=== PATIENT | female | born 1995 | race Caucasian/White ===

== ENCOUNTER 2020-08-21 07:19 | Inpatient (IN) | payer BC ==
[2020-08-21] MEDS ORDERED: Nalbuphine 10 MG/1 ML Vial IVPUSH PRN (07:25)
[2020-08-21] MEDS ORDERED: Ondansetron 4 MG/2 ML SDV IVPUSH PRN (07:25)
[2020-08-21] MEDS ORDERED: Sodium Chloride 0.9% 10 ML Syringe FLUSH PRN (07:25)
[2020-08-21] MEDS ORDERED: Oxytocin/Lactated Ringers 10 UNIT/1,000 ML BAG IV SCH ×2 (07:30)
[2020-08-21] MEDS: Lactated Ringers 1,000 ML IV SCH ×2 (07:49→12:42)
[2020-08-21] MEDS ORDERED: Ampicillin 2 GM in Sodium Chloride 0.9% 100 ML IV ONE (08:00)
--- NOTE | 2020-08-21 09:04 | PCM.LDHP ---
L&D History of Present Illness - General Date of Service: 08/21/20 Admit Problem/Dx: Patient Status Order with Admit Dx/Problem 08/21/20 07:34 Admission Status [Patient Status] [ADT] Routine Admission Diagnosis/Problem Admission Diagnosis/Problem 08/21/20 08:48 Renetta is a 25-year-old 2 para 1-0-0-1 female presently at 40-0/7 weeks gestational age with an ARY of 08/21/2020 admitted for induction of labor on the a.m. of 08/21/2020. Source of Information: Patient History Limitations: Reports: No Limitations - History of Present Illness Introduction:: Renetta is a 25-year-old 2 para 1-0-0-1 female presently at 40-0/7 weeks gestational age with an ARY of 08/21/2020 admitted for induction of labor on the a.m. of 08/21/2020. The process and procedure of induction of labor, its risks, benefits, alternatives of care including allowing for natural onset of labor are discussed in detail with the patient. She appears understand and wishes to proceed. 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 Patient had menarche at age 13. Cycles q. 28 days and regular. Her ARY of 08/22/2019 was determined by a certain last menstrual period starting 11/15/2019 and supported by at least 3 ultrasounds during the course of the at 6 weeks, 9 weeks and 19 weeks. Patient was not using any control at the time of conception. Her previous obstetric history is negative for STIs or abnormal Pap smears. Her previous obstetric experience includes the followin. Female infant born 02/07/2018 at 39-4/7 weeks gestational age8 pounds 7 ouncesNSVDepidural used for pain [facility]. Child's name is Karl course: Patient was first visit was on 12/28/2019 at 6-2/7 weeks gestational age at which time a transvaginal ultrasound was supportive of her certain last menstrual period 11/15/2019 dating giving a final ARY of 08/21/2020. She was seen on a very regular basis throughout the course. Weight gain has been from 183.8 pounds to 215 pounds. Her vital signs been stable throughout the course. She is group B strep positive and is a candidate for ampicillin prophylaxis in L&D. She declined genetic testing. She declined flu vaccination. She has a history of kidney stones. She plans on br east-feeding. She had her Tdap on 06/13/2020. She is rubella immune. Laboratory testing in : Blood is a positive with a negative antibody screen. First laboratory testing showed hemoglobin of 13.1 g/dL and platelets of 329,000. Her rubella titer shows immunity. RPR is nonreactive. Urine culture was negative. Hepatitis B surface antigen and HIV assays were both negative. Chlamydia and gonorrhea tests were both negative. Her TSH done on 02/22/2020 was normal at 0.851milliunits/L. Second trimester laboratory testing showed a hemoglobin of 12.5 g/dL and platelets at 313,000. Her 1 hour GTT was normal at 92. Follow-up CBC on 05/19/2020 showed hemoglobin 11.7 with platelets at 298,000. RPR at that same time was nonreactive. Group B strep screen done on 07/25/2020 was positive. Early progesterone levels and hCG numbers were normal. Allergies: None Medications: 1. vitamins p.o. daily 2. Vitamin D tabs p.o. daily #3 calcium tablets p.o. daily #4 ferrous sulfate 325 mg p.o. daily Past medical history: 1. Depression anxiety. Also on depression treated with escitalopram after last 2. Reported some arthritis signs/symptoms. 3. History of kidney stones 4. x1 Past surgical history: 1. Tonsillectomy Family history: Mother is alive and well at age 44. Paternal grandfather is diabetic. Initially type I diabetic later type 2 diabetes. Was 58 years old when he passed from heart failure. Maternal grand mother has history of breast cancer was 50+ years old when diagnosed. Regular age and health problems with still alive. Father is well at age 45. Paternal grandfather has COPDwas a smoker, alcoholic is now presently in his late 70s. Paternal grandmother has heart issues, takes medications. She did have a stent placed in her late 70s. She has no siblings. One first cousin that is healthy. Mother's sister with problems due to having only half the uterus. No family history of bleeding or clotting disorders, anesthesia related problems or related concerns. Social history: Patient is single. She is a high school graduate. 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 Her significant other is Travis Duong. She lives in [place], [place]. She does not use any significance alcohol, drugs or tobacco. Review of systems: In general patient has no complaints. Baby is active. She h as had no significant cramps, loss of vaginal fluid or bleeding. Skin: Negative Lungs: No infectious symptoms or shortness of breath Cardiovascular: No chest pain or exercise intolerance Breasts: No lumps, changes in size, pain, dimpling, discharge or axillary or supraclavicular concerns. GI: Negative : Body habitus changes associated . Musculoskeletal: Negative Neurological: Negative Physical exam: In general the patient is well-developed, well-nourished, pleasant female of stated age in no acute distress. On last evaluation in clinic on 08/15/2020 Renetta had a blood pressure of 120/68. Weight was 215 with weight on initial visit 183.8. Prepregnancy body mass index was 26. Height is 5 feet 9 inches. heart rate was 126. Skin is warm dry without lesions. HEENT, neck and back within normal limits. Lungs are clear with good breath sounds in all lung ross. Cardiovascular exam shows regular and rhythm without murmurs. Breast exam deferred having been done just prior to her first visit and found to be normal. Patient does plan to breast-feed. Abdomen is flat, soft, nontender without masses or organomegaly. Positive bowel sounds are noted. No inguinal lymphadenopathy or hernias are noted. Genital per digital evaluation on her last clinic visit shows cervix 2 cm plus, mid position, soft, -3 station, 70% effaced. Extremities and neurological exam are grossly within normal limits. 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: Reports: Musculoskeletal History: Reports: Arthritis (as a child-) Psychiatric History: Reports: Anxiety, Depression Other Psychiatric History: Previously treated, not since - Infectious Disease History Infectious Disease History: Reports: Novel Coronavirus - Past Surgical History HEENT Surgical History: Reports: Oral Surgery, Tonsillectomy Other HEENT Surgeries/Procedures: [place] tooth removal Social & Family History - Family History Family Medical History: No Pertinent Family History - Tobacco Use Tobacco Use Status *Q: Never Tobacco User Second Hand Smoke Exposure: No - Caffeine Use Caffeine Use: Reports: None - Recreational Drug Use Recreational Drug Use: No H&P Review of Systems - Review of Systems: Review Of Systems: See Below L&D Exam - Exam Exam: See Below - Vital Signs Vital Signs: Last Vital Signs Temp 36.7 C 08/21/20 07:25 Pulse Resp 14 08/21/20 07:25 BP 128/75 08/21/20 07:25 Pulse Ox 100 08/21/20 07:25 Weight: 98.43 kg - Patient Data Lab Results Last 24 hrs: Laboratory Results - last 24 hr 08/21/20 08/21/20 Range/Units 07:30 07:35 WBC 10.22 H (3.98-10.04) K/mm3 RBC 4.01 (3.98-5.22) M/mm3 Hgb 12.3 (11.2-15.7) gm/dl Hct 36.6 (34.1-44.9) % MCV 91.3 (79.4-94.8) fl MCH 30.7 (25.6-32.2) pg MCHC 33.6 (32.2-35.5) g/dl RDW Std Deviation 43.6 (36.4-46.3) fL Plt Count 300 (182-369) K/mm3 MPV 9.4 (9.4-12.3) fl Neut % (Auto) 77.1 H (34.0-71.1) % Lymph % (Auto) 15.6 L (19.3-51.7) % [place] % (Auto) 5.6 (4.7-12.5) % Eos % (Auto) 1.0 (0.7-5.8) Baso % (Auto) 0.2 (0.1-1.2) % Neut # (Auto) 7.89 H (1.56-6.13) K/mm3 Lymph # (Auto) 1.59 (1.18-3.74) K/mm3 [place] # (Auto) 0.57 H (0.24-0.36) K/mm3 Eos # (Auto) 0.10 (0.04-0.36) K/mm3 Baso # (Auto) 0.02 (0.01-0.08) K/mm3 SARS-CoV-2 RNA (ELLA) Negative (NEGATIVE) Result Diagrams: 08/21/20 07:35 - Problem List (1) 40 weeks gestation of SNOMED Code(s): 76989952 ICD Code: Z3A.40 - 40 WEEKS GESTATION OF Status: Acute Current Visit: Yes (2) Group beta Strep positive SNOMED Code(s): 283812778, 828962376 ICD Code: B95.1 - STREPTOCOCCUS, GROUP B, CAUSING DISEASES CLASSD [id number] Status: Acute Current Visit: Yes Problem List Initiated/Reviewed/Updated: Yes Orders Last 24hrs: Active Orders 24 hr Category Date Time Status Admission Status [Patient Status] [ADT] Routine ADT 08/21/20 07:34 Active Activity as Tolerated [RC] PFP Care 08/21/20 07:25 Active Communication Order [RC] ASDIRECTED Care 08/21/20 07:25 Active Heart Tones [RC] ASDIRECTED Care 08/21/20 07:26 Active Non Stress Test [RC] PER UNIT ROUTINE Care 08/21/20 07:25 Active Notify Provider [RC] PFP Care 08/21/20 07:25 Active Notify Provider [RC] PRN Care 08/21/20 07:25 Active Peripheral IV Care [RC] . DIRECTED Care 08/21/20 07:26 Active Vital Signs [RC] PER UNIT ROUTINE Care 08/21/20 07:25 Active Regular Diet [DIET] Diet 08/21/20 Breakfast Active BLOOD BANK HOLD SPECIMEN [BBK] Stat Lab 08/21/20 07:25 Ordered HEP C VIRUS AB [REF] Stat Lab 08/21/20 07:35 Received RAPID PLASMA REAGIN,RPR [CHEM] Routine Lab 08/21/20 07:35 Received Ampicillin 1 gm Med 08/21/20 12:00 Active Sodium Chloride 0.9% [Normal Saline] 100 ml IV Q4H Lactated Ringers [Ringers, Lactated] 1,000 ml Med 08/21/20 07:30 Active IV ASDIRECTED Nalbuphine [Nubain] Med 08/21/20 07:25 Active 10 mg IVPUSH Q2H PRN Ondansetron [Zofran] Med 08/21/20 07:25 Active 4 mg IVPUSH Q4H PRN Oxytocin/Lactated Ringers [Pitocin in LR 10 Units/1,000 Med 08/21/20 07:30 Active ML] 10 unit in 1,000 ml IV .CONTINUOUS Oxytocin/Lactated Ringers [Pitocin in LR 10 Units/1,000 Med 08/21/20 07:30 Active ML] 10 unit in 1,000 ml IV TITRATE Sodium Chloride 0.9% [Saline Flush] Med 08/21/20 07:25 Active 10 ml FLUSH ASDIRECTED PRN Electronic Heart Tones Ext w TOCO [WOMSER] Ot 08/21/20 07:25 Ordered Routine Electronic Heart Tones Internal [WOMSER] Per Unit Ot 08/21/20 07:25 Ordered Routine Peripheral IV Insertion Adult [OM.PC] Routine Oth 08/21/20 07:25 Ordered Resuscitation Status Routine Resus Stat 08/21/20 07:25 Ordered Medication Orders Ampicillin Sodium 1 gm/ Sodium (Chloride) 100 mls @ 200 mls/hr IV Q4H GERALDO Oxytocin/Lactated Ringer's (Pitocin In Lr 10 Units/1,000 Ml) 10 unit in 1,000 mls @ 12 mls/hr IV TITRATE GERALDO; Protocol Last Admin: 08/21/20 08:14 Dose: 2 munits/min, 12 mls/hr Documented by: CATARINA Oxytocin/Lactated Ringer's (Pitocin In Lr 10 Units/1,000 Ml) 10 unit in 1,000 mls @ 500 mls/hr IV .CONTINUOUS GERALDO Lactated Ringer's (Ringers, Lactated) 1,000 mls @ 100 mls/hr IV ASDIRECTED GERALDO Last Admin: 08/21/20 07:49 Dose: 100 mls/hr Documented by: CATARINA Nalbuphine HCl (Nalbuphine 10 Mg/1 Ml Vial) 10 mg IVPUSH Q2H PRN PRN Reason: Pain Ondansetron HCl (Ondansetron 4 Mg/2 Ml Sdv) 4 mg IVPUSH Q4H PRN PRN Reason: Nausea/Vomiting Sodium Chloride (Sodium Chloride 0.9% 10 Ml Syringe) 10 ml FLUSH ASDIRECTED PRN PRN Reason: Keep Vein Open Assessment/Plan Comment:: 1Sandra Jackson is a 25-year-old 2 para 1-0-0-1 female presently at 40-0/7 weeks gestational age with an ARY of 08/21/2020 admitted for induction of labor on the a.m. of 08/21/2020. 2. Group B strep positivepatient candidate for ampicillin prophylaxis per protocol in labor and delivery 3. Patient plans to breast-feed. 4. She is rubella immune 5. Patient received Tdap during . 6. Desires epidural in labor and delivery Plan: 1. Pitocin induction of labor to be followed by AROM when possible. Procedure, risk, benefits, alternatives of care discussed in detail with patient and her significant other. They appear to understand and wished to proceed 2. Ampicillin for protocol for group B strep prophylaxis 3. Epidural when patient desires 4. Support breast feeding decision 5. Admission labs consist of CBC, COVID-19 testing, RPR.
[2020-08-21] MEDS: Ampicillin 1 GM in Sodium Chloride 0.9% 100 ML IV SCH (12:04)
[2020-08-21] MEDS ORDERED: fentaNYL 100 MCG/2 ML SDV ONE (12:23)
[2020-08-21] MEDS ORDERED: diphenhydrAMINE 50 MG/ML SDV IVPUSH PRN (12:35)
[2020-08-21] MEDS ORDERED: ePHEDrine 50 MG/ML SDV IVPUSH PRN (12:35)
[2020-08-21] MEDS ORDERED: fentaNYL 100 MCG/2 ML SDV EPIDUR PRN (12:35)
[2020-08-21] MEDS ORDERED: Bupivacaine/fentaNYL/NS 100 ML Bag EPIDUR PRN (12:35)
--- NOTE | 2020-08-21 13:18 | PCM.PREANE ---
Preanesthetic Assessment - Procedure Proposed Procedure: marisela - Anesthesia/Transfusion/Family Hx Anesthesia History: Prior Anesthesia Without Reaction Family History of Anesthesia Reaction: No Transfusion History: No Prior Transfusion(s) - Review of Systems General: No Symptoms Pulmonary: No Symptoms Cardiovascular: No Symptoms Gastrointestinal: No Symptoms Neurological: No Symptoms Other: Reports: None - Physical Assessment Vital Signs: Last Vital Signs Temp 98.0 F 08/21/20 07:25 Pulse Resp 14 08/21/20 07:25 BP 128/75 08/21/20 07:25 Pulse Ox 100 08/21/20 07:25 Height: 5 ft 9 in Weight: 98.43 kg ASA Class: 2 Mental Status: Alert & Oriented x3 Airway Class: Mallampati = 1 Dentition: Reports: Normal Dentition (braces intact) Thyro-Mental Finger Breadths: 3 Mouth Opening Finger Breadths: 3 ROM/Head Extension: Full Lungs: Clear to Auscultation, Normal Respiratory Effort Cardiovascular: Regular Rate, Regular Rhythm - Lab Values: Laboratory Last Values WBC 10.22 K/mm3 (3.98-10.04) H 08/21/20 07:35 RBC 4.01 M/mm3 (3.98-5.22) 08/21/20 07:35 Hgb 12.3 gm/dl (11.2-15.7) 08/21/20 07:35 Hct 36.6 % (34.1-44.9) 08/21/20 07:35 MCV 91.3 fl (79.4-94.8) 08/21/20 07:35 MCH 30.7 pg (25.6-32.2) 08/21/20 07:35 MCHC 33.6 g/dl (32.2-35.5) 08/21/20 07:35 RDW Std Deviation 43.6 fL (36.4-46.3) 08/21/20 07:35 Plt Count 300 K/mm3 (182-369) 08/21/20 07:35 MPV 9.4 fl (9.4-12.3) 08/21/20 07:35 Neut % (Auto) 77.1 % (34.0-71.1) H 08/21/20 07:35 Lymph % (Auto) 15.6 % (19.3-51.7) L 08/21/20 07:35 [place] % (Auto) 5.6 % (4.7-12.5) 08/21/20 07:35 Eos % (Auto) 1.0 (0.7-5.8) 08/21/20 07:35 Baso % (Auto) 0.2 % (0.1-1.2) 08/21/20 07:35 Neut # (Auto) 7.89 K/mm3 (1.56-6.13) H 08/21/20 07:35 Lymph # (Auto) 1.59 K/mm3 (1.18-3.74) 08/21/20 07:35 [place] # (Auto) 0.57 K/mm3 (0.24-0.36) H 08/21/20 07:35 Eos # (Auto) 0.10 K/mm3 (0.04-0.36) 08/21/20 07:35 Baso # (Auto) 0.02 K/mm3 (0.01-0.08) 08/21/20 07:35 SARS-CoV-2 RNA (ELLA) Negative (NEGATIVE) 08/21/20 07:30 - Allergies Allergies/Adverse Reactions: Allergies Allergy/AdvReac Type Severity Reaction Status Date / Time No Known Allergies Allergy Verified 08/21/20 07:25 - Blood Blood Available: No - Acknowledgements Anesthesia Type Planned: Epidural Pt an Appropriate Candidate for the Planned Anesthesia: Yes Alternatives and Risks of Anesthesia Discussed w Pt/Guardian: Yes Pt/Guardian Understands and Agrees with Anesthesia Plan: Yes PreAnesthesia Questionnaire - Past Health History Medical/Surgical History: Denies Medical/Surgical History Cardiovascular History: Reports: None Respiratory History: Reports: Other (See Below) Gastrointestinal History: Reports: GERD (with preg) Genitourinary History: Reports: Renal Calculus 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 Musculoskeletal History: Reports: Arthritis (as a child-) Psychiatric History: Reports: Anxiety, Depression Other Psychiatric History: Previously treated, not since Oncologic (Cancer) History: Reports: None - Infectious Disease History Infectious Disease History: Reports: Novel Coronavirus - Past Surgical History HEENT Surgical History: Reports: Oral Surgery, Tonsillectomy Other HEENT Surgeries/Procedures: [place] tooth removal - SUBSTANCE USE Tobacco Use Status *Q: Never Tobacco User Tobacco Use Within Last Twelve Months: No Second Hand Smoke Exposure: No Days Per Week of Alcohol Use: 0 Recreational Drug Use History: No - HOME MEDS Home Medications: Home Meds Pnv95/Iron Fum/Folic Acid [ Caplet] 1 tab PO DAILY 09/22/15 [History] - CURRENT (IN HOUSE) MEDS Current Meds: Current Medications Diphenhydramine HCl (Diphenhydramine 50 Mg/Ml Sdv) 25 mg IVPUSH Q6H PRN PRN Reason: pruritis Ephedrine Sulfate (Ephedrine 50 Mg/Ml Sdv) 5 mg IVPUSH ASDIRECTED PRN PRN Reason: Hypotension Fentanyl (Fentanyl 100 Mcg/2 Ml Sdv) 100 mcg EPIDUR Q3H PRN PRN Reason: Pain Last Admin: 08/21/20 12:43 Dose: 100 mcg Documented by: Fentanyl/Bupivacaine HCl (Bupivacaine/Fentanyl/Ns 100 Ml Bag) 100 ml EPIDUR ASDIRECTED PRN PRN Reason: Pain Last Admin: 08/21/20 12:50 Dose: 100 ml Documented by: Ampicillin Sodium 1 gm/ Sodium (Chloride) 100 mls @ 200 mls/hr IV Q4H GERALDO Last Admin: 08/21/20 12:04 Dose: 200 mls/hr Documented by: Oxytocin/Lactated Ringer's (Pitocin In Lr 10 Units/1,000 Ml) 10 unit in 1,000 mls @ 12 mls/hr IV TITRATE GERALDO; Protocol Last Titration: 08/21/20 11:18 Dose: 12 munits/min, 72 mls/hr Documented by: Oxytocin/Lactated Ringer's (Pitocin In Lr 10 Units/1,000 Ml) 10 unit in 1,000 mls @ 500 mls/hr IV .CONTINUOUS GERALDO Lactated Ringer's (Ringers, Lactated) 1,000 mls @ 100 mls/hr IV ASDIRECTED GERALDO Last Admin: 08/21/20 12:42 Dose: 100 mls/hr Documented by: Nalbuphine HCl (Nalbuphine 10 Mg/1 Ml Vial) 10 mg IVPUSH Q2H PRN PRN Reason: Pain Ondansetron HCl (Ondansetron 4 Mg/2 Ml Sdv) 4 mg IVPUSH Q4H PRN PRN Reason: Nausea/Vomiting Sodium Chloride (Sodium Chloride 0.9% 10 Ml Syringe) 10 ml FLUSH ASDIRECTED PRN PRN Reason: Keep Vein Open Discontinued Medications Fentanyl (Fentanyl 100 Mcg/2 Ml Sdv) Confirm Administered Dose 100 mcg .ROUTE .STK-MED ONE Stop: 08/21/20 12:24 Last Admin: 08/21/20 12:45 Dose: Not Given Documented by: Ampicillin Sodium 2 gm/ Sodium (Chloride) 100 mls @ 200 mls/hr IV ONETIME ONE Stop: 08/21/20 08:29 Last Admin: 08/21/20 07:51 Dose: 200 mls/hr Documented by:
[2020-08-21] MEDS ORDERED: Bupivacaine 0.25% 10 ML SDV ONE (16:00)
--- NOTE | 2020-08-21 17:04 | PCM.SN.2 ---
- Free Text/Narrative Note: Delivery note: Stage I: Renetta is a 25-year-old 2 now para 2-0-0-2 female presently at 40-0/7 weeks gestational age with an ARY of 08/21/2020 admitted for induction of labor on the a.m. of 08/21/2020. She was group B strep status positive and therefore was started on group B strep prophylaxis with ampicillin per protocol. She was also started on Pitocin induction. She was sensitive to Pitocin and made fair progress. Renetta had spontaneous rupture membranes with resultant clear amniotic fluid. She underwent an epidural for labor analgesia. This with good results. She progressed steadily to complete cervical dilation by approximately 1615 hrs. Stage II: The patient delivered a viable, small, female infant named Liz Cotto at 1631 hrs. on 08/21/2020. Glenna weighed 4110 g (9 pounds 1.0 ounces), had Apgars of 8 and 9 and a length of 22.0 inches. The baby was placed on mom's abdomen. Umbilical cord was allowed to pulsate for approximately 2 minutes. Pitocin was increased to 500 cc an hour to facilitate increase in uterine tone and decrease likelihood of bleeding. Umbilical cord was then clamped x2 and cut by the baby's Father Travis. The umbilical cord had 3 vessels. Cord blood was obtained. Stage III: The placenta delivered at 1635 hrs. in a Vizcarra presentation, appeared intact and complete and was discarded per patient desire. Estimated blood loss was 300 cc. Condition: Good. Patient plans to breast-feed.
[2020-08-21] MEDS ORDERED: Benzocaine/Menthol 20%-0.5% Spray 56 GM Canister TOP PRN (17:19)
[2020-08-21] MEDS: Docusate Sodium 100 MG Cap PO PRN (18:11)
[2020-08-21] MEDS: Ibuprofen 600 MG Tab PO PRN ×2 (18:12→21:54)
[2020-08-21] MEDS: Witch Hazel Medicated Pads 40/Jar TOP PRN (18:12)
[2020-08-21] MEDS: Acetaminophen 325 MG Tab PO PRN (21:11)
[2020-08-22] MEDS: Ampicillin 1 GM in Sodium Chloride 0.9% 100 ML IV SCH (00:43)
[2020-08-22] MEDS: Docusate Sodium 100 MG Cap PO PRN (05:07)
[2020-08-22] MEDS: Ibuprofen 600 MG Tab PO PRN ×2 (05:07→10:28)
--- NOTE | 2020-08-22 07:27 | PCM.DCSUM1 ---
Discharge Summary - Hospital Course Diagnosis: Stroke: No - Discharge Data Discharge Date: 08/22/20 Discharge Disposition: Home, Self-Care 01 Condition: Good - Referral to Home Health Primary Care Physician: Hakan Sanchez MD - Patient Summary/Data Hospital Course: Stage I: Renetta is a 25-year-old 2 now para 2-0-0-2 female presently at 40-0/7 weeks gestational age with an ARY of 08/21/2020 admitted for induction of labor on the a.m. of 08/21/2020. She was group B strep status positive and therefore was started on group B strep prophylaxis with ampicillin per protocol. She was also started on Pitocin induction. She was sensitive to Pitocin and made fair progress. Renetta had spontaneous rupture membranes with resultant clear amniotic fluid. She underwent an epidural for labor analgesia. This with good results. She progressed steadily to complete cervical dilation by approximately 1615 hrs. Stage II: The patient delivered a viable, small, female named Liz Cotto at 1631 hrs. on 08/21/2020. Glenna weighed 4110 g (9 pounds 1.0 ounces), had Apgars of 8 and 9 and a length of 22.0 inches. The baby was placed on mom's abdomen. Umbilical cord was allowed to pulsate for approximately 2 minutes. Pitocin was increased to 500 cc an hour to facilitate increase in uterine tone and decrease likelihood of bleeding. Umbilical cord was then clamped x2 and cut by the baby's Father Travis. The umbilical cord had 3 vessels. Cord blood was obtained. Stage III: The placenta delivered at 1635 hrs. in a Vizcarra presentation, appeared intact and complete and was discarded per patient desire. Estimated blood loss was 300 cc. Condition: Good. Patient plans to breast-feed. : Desired discharge PPD1. Good condition. No issues. - Patient Instructions Diet: Usual Diet as Tolerated Activity: No Strenuous Activities Activity, Other: pelvic rest Driving: May Drive Today Showering/Bathing: May Shower Notify Provider of: Fever, Increased Pain, Swelling and Redness, Drainage, Nausea and/or Vomiting - Discharge Plan *PRESCRIPTION DRUG MONITORING PROGRAM REVIEWED*: No *COPY OF PRESCRIPTION DRUG MONITORING REPORT IN PATIENT JUNIOR: No Home Medications: Home Meds Pnv95/Iron Fum/Folic Acid [ Caplet] 1 tab PO DAILY 09/22/15 [History] Referrals: Hakan Sanchez MD [Primary Care Provider] - (2 weeks) - Discharge Summary/Plan Comment DC Time >30 min.: No - Patient Data Vitals - Most Recent: Last Vital Signs Temp 36.5 C 08/22/20 04:47 Pulse 74 08/22/20 04:47 Resp 14 08/22/20 04:47 BP 111/56 L 08/22/20 04:47 Pulse Ox 100 08/22/20 04:47 Weight - Most Recent: 98.43 kg I&O - Last 24 hours: Intake & Output 08/21/20 08/22/20 08/22/20 22:59 06:59 14:59 Output Total 1169 Balance -1169 Lab Results - Last 24 hrs: Laboratory Results - last 24 hr 08/21/20 08/21/20 08/21/20 Range/Units 07:30 07:35 07:35 WBC 10.22 H (3.98-10.04) K/mm3 RBC 4.01 (3.98-5.22) M/mm3 Hgb 12.3 (11.2-15.7) gm/dl Hct 36.6 (34.1-44.9) % MCV 91.3 (79.4-94.8) fl MCH 30.7 (25.6-32.2) pg MCHC 33.6 (32.2-35.5) g/dl RDW Std Deviation 43.6 (36.4-46.3) fL Plt Count 300 (182-369) K/mm3 MPV 9.4 (9.4-12.3) fl Neut % (Auto) 77.1 H (34.0-71.1) % Lymph % (Auto) 15.6 L (19.3-51.7) % Bryan % (Auto) 5.6 (4.7-12.5) % Eos % (Auto) 1.0 (0.7-5.8) Baso % (Auto) 0.2 (0.1-1.2) % Neut # (Auto) 7.89 H (1.56-6.13) K/mm3 Lymph # (Auto) 1.59 (1.18-3.74) K/mm3 Bryan # (Auto) 0.57 H (0.24-0.36) K/mm3 Eos # (Auto) 0.10 (0.04-0.36) K/mm3 Baso # (Auto) 0.02 (0.01-0.08) K/mm3 RPR Non-reactive (NONREACTIVE) SARS-CoV-2 RNA (ELLA) Negative (NEGATIVE) Med Orders - Current: Current Medications Acetaminophen (Acetaminophen 325 Mg Tab) 650 mg PO Q4H PRN PRN Reason: mild pain or fever Last Admin: 08/21/20 21:11 Dose: 650 mg Documented by: Benzocaine/Menthol (Benzocaine/Menthol 20%-0.5% [place] 56 Gm Canister) 0 gm TOP ASDIRECTED PRN PRN Reason: Perineal Comfort Measure Last Admin: 08/21/20 18:12 Dose: 1 can Documented by: Docusate Sodium (Docusate Sodium 100 Mg Cap) 100 mg PO BID PRN PRN Reason: Constipation Last Admin: 08/22/20 05:07 Dose: 100 mg Documented by: Ibuprofen (Ibuprofen 600 Mg Tab) 600 mg PO Q4H PRN PRN Reason: Mild pain or fever Last Admin: 08/22/20 05:07 Dose: 600 mg Documented by: Prenat Multivit/Psychologist Educational/Iron/Folic Ac ( Multivitamin With Calcium/Folic Acid/Iron Tab) 1 each PO DAILY GERALDO Witch Jesusita (Witch Jesusita Medicated Pads 40/Jar) 1 pad TOP ASDIRECTED PRN PRN Reason: Perineal Comfort Measure Last Admin: 08/21/20 18:12 Dose: 1 tub Documented by: Discontinued Medications Diphenhydramine HCl (Diphenhydramine 50 Mg/Ml Sdv) 25 mg IVPUSH Q6H PRN PRN Reason: pruritis Ephedrine Sulfate (Ephedrine 50 Mg/Ml Sdv) 5 mg IVPUSH ASDIRECTED PRN PRN Reason: Hypotension Fentanyl (Fentanyl 100 Mcg/2 Ml Sdv) Confirm Administered Dose 100 mcg .ROUTE .STK-MED ONE Stop: 08/21/20 12:24 Last Admin: 08/21/20 12:45 Dose: Not Given Documented by: Fentanyl (Fentanyl 100 Mcg/2 Ml Sdv) 100 mcg EPIDUR Q3H PRN PRN Reason: Pain Last Admin: 08/21/20 12:43 Dose: 100 mcg Documented by: Fentanyl/Bupivacaine HCl (Bupivacaine/Fentanyl/Ns 100 Ml Bag) 100 ml EPIDUR ASDIRECTED PRN PRN Reason: Pain Last Admin: 08/21/20 12:50 Dose: 100 ml Documented by: Ampicillin Sodium 2 gm/ Sodium (Chloride) 100 mls @ 200 mls/hr IV ONETIME ONE Stop: 08/21/20 08:29 Last Admin: 08/21/20 07:51 Dose: 200 mls/hr Documented by: Ampicillin Sodium 1 gm/ Sodium (Chloride) 100 mls @ 200 mls/hr IV Q4H GERALDO Last Admin: 08/22/20 00:43 Dose: Not Given Documented by: Oxytocin/Lactated Ringer's (Pitocin In Lr 10 Units/1,000 Ml) 10 unit in 1,000 mls @ 12 mls/hr IV TITRATE GERALDO; Protocol Last Titration: 08/21/20 15:43 Dose: 18 munits/min, 108 mls/hr Documented by: Oxytocin/Lactated Ringer's (Pitocin In Lr 10 Units/1,000 Ml) 10 unit in 1,000 mls @ 500 mls/hr IV .CONTINUOUS GERALDO Last Admin: 08/21/20 17:06 Dose: 500 mls/hr Documented by: Lactated Ringer's (Ringers, Lactated) 1,000 mls @ 100 mls/hr IV ASDIRECTED GERALDO Last Admin: 08/21/20 12:42 Dose: 100 mls/hr Documented by: Nalbuphine HCl (Nalbuphine 10 Mg/1 Ml Vial) 10 mg IVPUSH Q2H PRN PRN Reason: Pain Ondansetron HCl (Ondansetron 4 Mg/2 Ml Sdv) 4 mg IVPUSH Q4H PRN PRN Reason: Nausea/Vomiting Last Admin: 08/21/20 17:09 Dose: 4 mg Documented by: Sodium Chloride (Sodium Chloride 0.9% 10 Ml Syringe) 10 ml FLUSH ASDIRECTED PRN PRN Reason: Keep Vein Open
[2020-08-22] MEDS: Acetaminophen 325 MG Tab PO PRN ×2 (08:33→14:08)
--- NOTE | 2020-08-22 08:41 | PCM48HPAN ---
Post Anesthesia Note - EVALUATION WITHIN 48HRS OF ANESTHETIC Vital Signs in Normal Range: Yes Patient Participated in Evaluation: Yes Respiratory Function Stable: Yes Airway Patent: Yes Cardiovascular Function Stable: Yes Hydration Status Stable: Yes Pain Control Satisfactory: Yes Nausea and Vomiting Control Satisfactory: Yes Mental Status Recovered: Yes Vital Signs: Last Vital Signs Temp 36.5 C 08/22/20 04:47 Pulse 74 08/22/20 04:47 Resp 14 08/22/20 04:47 BP 111/56 L 08/22/20 04:47 Pulse Ox 100 08/22/20 04:47
[2020-08-22] MEDS ORDERED: Prenatal Multivitamin with Calcium/Folic Acid/Iron Tab PO SCH (09:00)
[2020-08-22] MEDS: Witch Hazel Medicated Pads 40/Jar TOP PRN (14:08)
[2020-08-22 15:21] VITALS: BP 97/58; PULSE 68
== END 2020-08-22 17:34 | disposition home or self-care (01) | DRG 560 ==
LOC: JD.OB 07:19 → OBSVTOIN 16:31 → JD.OB 16:31
PROVIDERS: ADMIT Obstetrics & Gynecology; ATTEND Obstetrics & Gynecology
PROC: 10E0XZZ Delivery of Products of Conception, External Approach (ICD-10-PCS; principal; 2020-08-21)
PROC: 3E033VJ Introduction of Other Hormone into Peripheral Vein, Percutaneous Approach (ICD-10-PCS; 2020-08-21)
PROC: 3E0R3BZ Introduction of Anesthetic Agent into Spinal Canal, Percutaneous Approach (ICD-10-PCS; 2020-08-21)
DX: O48.0 Post-term pregnancy (principal); Z3A.40 40 weeks gestation of pregnancy; Z37.0 Single live birth; O99.824 Streptococcus B carrier state complicating childbirth; Z20.822 Contact with and (suspected) exposure to COVID-19
CPT/HCPCS: 01967; 36415; 51702; 59025; 59409; 85025; 86592; 86803; A9270-GY; J0290; J2405; J2590; J3010; J3490; J7120; U0002

== ENCOUNTER 2022-10-07 10:52 | Inpatient (IN) | payer OTHER ==
[~2022-10-07 10:52] MED LIST: Lidocaine 2% with EPINEPHrine 1:200,000 20 ML SDV ONE
[2022-10-07] MEDS ORDERED: Nalbuphine 10 MG/0.5 ML Syringe IVPUSH PRN (11:00)
[2022-10-07] MEDS ORDERED: Sodium Chloride 0.9% 10 ML Syringe FLUSH PRN (11:00)
[2022-10-07] MEDS ORDERED: Lidocaine 1% 50 ML MDV INJECT SCH (11:00)
[2022-10-07] MEDS ORDERED: Ondansetron 4 MG/2 ML SDV IVPUSH PRN (11:00)
[2022-10-07 11:32] LABS: BASOPHILS ABSOLUTE AUTO 0.1 K/mm3 (0.0-0.2); BASOPHILS PERCENT AUTO 0.5 % (0.0-1.0); EOSINOPHILS ABSOLUTE AUTO 0.1 K/mm3 (0.0-0.4); EOSINOPHILS PERCENT AUTO 0.8 % (0.0-6.0); HEMATOCRIT 31.3 % (37.0-47.0); IMMATURE GRAN PERCENT AUTO 0.9 % (0.0-0.4); LYMPHOCYTES ABSOLUTE AUTO 1.8 K/mm3 (1.0-4.8); LYMPHOCYTES PERCENT AUTO 16.9 % (24.0-44.0); MEAN CORPUSCULAR HEMOGLOBIN 31.3 pg (28.0-32.0); MEAN CORPUSCULAR HGB CONC 35.1 g/dl (32.0-36.0); MEAN CORPUSCULAR VOLUME 89.2 fl (83.0-99.0); MEAN PLATELET VOLUME 9.6 fl (9.4-12.3); MONOCYTES ABSOLUTE AUTO 0.6 K/mm3 (0.0-0.8); MONOCYTES PERCENT AUTO 5.4 % (0.0-8.0); NEUTROPHILS ABSOLUTE AUTO 8.2 K/mm3 (1.8-7.7); NEUTROPHILS PERCENT AUTO 75.5 % (41.0-71.0); NRBC ABSOLUTE 0.03 (0.00-0.02); NRBC PERCENT 0.3 % (0.0-0.2); PLATELET COUNT,PLT 252 K/mm3 (150-400); RED BLOOD CELL COUNT 3.51 M/mm3 (4.10-5.30); WHITE BLOOD CELL COUNT,WBC 10.83 K/mm3 (3.9-11.3)
[2022-10-07] MEDS: Oxytocin/Lactated Ringers 10 UNIT/1,000 ML BAG IV SCH (11:48)
[2022-10-07] MEDS: Lactated Ringers 1,000 ML IV SCH ×3 (11:48→19:06)
[2022-10-07 12:36] LABS: SLIDE REVIEW ABNORMAL SMEAR
[2022-10-07] MEDS ORDERED: Acetaminophen 325 MG Tab PO PRN (17:03)
[2022-10-07] MEDS: Calcium Carbonate 500 MG Tab.Chew PO PRN ×2 (17:31→22:49)
[2022-10-07] MEDS ORDERED: fentaNYL 100 MCG/2 ML SDV EPIDUR PRN (17:32)
[2022-10-07] MEDS ORDERED: ePHEDrine 50 MG/ML SDV IVPUSH PRN (17:32)
[2022-10-07] MEDS ORDERED: Bupivacaine/fentaNYL/NS 100 ML Bag EPIDUR PRN (17:32)
[2022-10-07] MEDS ORDERED: diphenhydrAMINE 50 MG/ML SDV IVPUSH PRN (17:32)
[2022-10-07] MEDS ORDERED: Sodium Chloride 0.9% 10 ML Syringe FLUSH SCH (21:00)
[2022-10-08] MEDS ORDERED: Witch Hazel Medicated Pads 40/Jar TOP PRN (00:44)
[2022-10-08] MEDS ORDERED: Benzocaine/Menthol 20%-0.5% Spray 78 GM Cannister TOP PRN (00:44)
[2022-10-08] MEDS ORDERED: Docusate Sodium 100 MG Cap PO PRN (00:44)
[2022-10-08] MEDS: Ibuprofen 600 MG Tab PO PRN ×3 (01:04→20:04)
[2022-10-08] MEDS: Acetaminophen 325 MG Tab PO PRN ×2 (01:04→17:11)
[2022-10-08] MEDS: Oxytocin/Lactated Ringers 10 UNIT/1,000 ML BAG IV SCH (01:06)
[2022-10-09] MEDS: Acetaminophen 325 MG Tab PO PRN (05:57)
[2022-10-09] MEDS: Ibuprofen 600 MG Tab PO PRN (08:16)
[2022-10-09 11:35] VITALS: BP 122/78; PULSE 82
== END 2022-10-09 11:06 | disposition home or self-care (01) | DRG 807 ==
LOC: JD.OB 10:52 → OBSVTOIN 23:19 → JD.OB 23:20
PROVIDERS: ADMIT Obstetrics & Gynecology; ATTEND Obstetrics & Gynecology
PROC: 10E0XZZ Delivery of Products of Conception, External Approach (ICD-10-PCS; principal; 2022-10-07)
PROC: 10907ZC Drainage of Amniotic Fluid, Therapeutic from Products of Conception, Via Natural or Artificial Opening (ICD-10-PCS; 2022-10-07)
PROC: 3E033VJ Introduction of Other Hormone into Peripheral Vein, Percutaneous Approach (ICD-10-PCS; 2022-10-07)
PROC: 3E0R3BZ Introduction of Anesthetic Agent into Spinal Canal, Percutaneous Approach (ICD-10-PCS; 2022-10-07)
PROC: 00HU33Z Insertion of Infusion Device into Spinal Canal, Percutaneous Approach (ICD-10-PCS; 2022-10-07)
DX: O36.8130 Decreased fetal movements, third trimester, not applicable or unspecified (principal); Z37.0 Single live birth; O69.2XX0 Labor and delivery complicated by other cord entanglement, with compression, not applicable or unspecified; Z3A.38 38 weeks gestation of pregnancy; Z98.890 Other specified postprocedural states; Z90.89 Acquired absence of other organs; Z28.39 Other underimmunization status; Z86.16 Personal history of COVID-19
CPT/HCPCS: 36415; 51702; 59025; 59409; 85025; 86592; 86850; 86900; 86901; A9270-GY; J2590; J3010; J3490; J7120